=== PATIENT | male | born 1955 | race Hispanic/Latino ===

== ENCOUNTER 2016-11-19 11:43 | Outpatient (CLI) | payer OTHER ==
[2016-11-19 12:22] LABS: Hematocrit 39.7 % (35.5-45.6); Hemoglobin 13.5 gm/dl (11.8-15.2); Mean Corpuscular HGB Conc 34 % (32-34); Mean Corpuscular Hemoglobin 29 pg (28-32); Mean Corpuscular Volume 86 fl (84-94); Platelet Count 166 K/mm3 (140-440); Red Blood Count 4.62 M/mm3 (3.65-5.03); Red Cell Distribution Width 13.3 % (13.2-15.2); White Blood Count 6.7 K/mm3 (4.5-11.0)
[2016-11-19 12:41] LABS: Erythrocyte Sedimentation Rate 10 mm/Hr (0-20)
[2016-11-19 12:42] LABS: Alanine Aminotransferase 52 units/L (7-56); Albumin 4.4 g/dL (3.9-5); Alkaline Phosphatase 74 units/L (35-129); Anion Gap 18 mmol/L; Blood Urea Nitrogen 16 mg/dL (9-20); Calcium 8.7 mg/dL (8.4-10.2); Carbon Dioxide 24 mmol/L (22-30); Chloride 101.6 mmol/L (98-107); Creatine Kinase 762 units/L (55-170); Glucose 107 mg/dL (75-100); Sodium 140 mmol/L (137-145); Total Protein 6.6 g/dL (6.3-8.2)
[2016-11-22 08:03] LABS: Vitamin D, 25-OH, Total 23 ng/mL (30-100)
== END 2016-11-19 11:44 | disposition home or self-care (01) ==
LOC: LAB 11:43
PROVIDERS: ATTEND Specialist
DX: G24.9 Dystonia, unspecified (principal)
CPT/HCPCS: 36415; 80053; 82085; 82164; 82306; 82550; 82607; 83921; 84443; 84479; 84480; 85027; 85652; 86038; 86225; 86592; 86618